=== PATIENT | male | born 1970 | race Caucasian/White ===

== ENCOUNTER 2023-09-29 17:00 | Emergency (ER) | payer OTHER ==
[2023-09-29 17:27] VITALS: BP 142/105; PULSE 72; RESP 18; TEMP 98.1; BMI 41.3
[2023-09-29] MEDS: SODIUM CHLORIDE 1,000 ML IV ONE (18:00)
[2023-09-29 18:31] LABS: HEMATOCRIT 50.5 % (35.4-49); HEMOGLOBIN 16.8 G/dL (11.7-16.9); MCH 28.4 pg (25.7-33.7); MCHC 33.2 g/dl (32.0-35.9); MEAN CELL VOLUME 85.6 fl (80-96); MEAN PLT VOLUME 9.7 fl (7.5-11.1); PLATELET COUNT 197.6 10^3/uL (134-434); RDW 14.2 % (11.9-15.9); WHITE BLOOD COUNT 11.7 10^3/uL (4.0-10.8)
[2023-09-29 18:33] LABS: INR 1.01 (0.83-1.09); PROTHROMBIN TIME (PATIENT) 11.5 SEC (9.7-13.0)
[2023-09-29 18:43] LABS: ALBUMIN 4.1 g/dl (3.4-5.0); BILIRUBIN,TOTAL 0.9 mg/dl (0.2-1); CALCIUM 9.8 mg/dl (8.5-10.1); CREATININE 0.7 mg/dl (0.6-1.3); POTASSIUM 4.1 mmol/L (3.5-5.1)
[2023-09-29 19:11] LABS: PLATELET ESTIMATE ADEQUATE
== END 2023-09-29 19:14 | disposition home or self-care (01) ==
LOC: FER 17:00
PROC: 3E0337Z Introduction of Electrolytic and Water Balance Substance into Peripheral Vein, Percutaneous Approach (ICD-10-PCS; principal; 2023-09-29)
DX: K14.8 Other diseases of tongue (principal)
CPT/HCPCS: 36415; 80053; 85027; 85610; 86850; 86900; 86901; 96360; 99284-25